=== PATIENT | female | born 1985 | race Caucasian/White ===

== ENCOUNTER 2019-12-24 12:29 | Day surgery (SDC) | payer OTHER ==
[2019-12-21 12:10] VITALS: BMI 25.1
[2019-12-24 13:25] VITALS: TEMP 98
[2019-12-24 13:55] VITALS: BP 108/71; PULSE 60
--- NOTE | 2019-12-27 17:24 | PATH ---
Surgical Pathology Report Patient Name: JOHAN FRANK [facility]. Rec. #: [id number] /Age/Gender: 1985 (Age: 34) / F Account: [id number] Location: [facility] Taken: 12/24/2019 Received: 12/24/2019 Reported: 12/27/2019 Physicians: Kleber Tee M.D. Specimen(s) Received A: DUODENUM B: STOMACH C: DISTAL ESOPHAGUS Clinical History Epigastric pain Postoperative diagnosis: Abdominal pain, dyspepsia Final Diagnosis A. DUODENUM, BIOPSY: DUODENAL MUCOSA WITHOUT SIGNIFICANT PATHOLOGIC FINDINGS. B. STOMACH, BIOPSY: GASTRIC OXYNTIC MUCOSA WITH MILD CHRONIC GASTRITIS. IMMUNOHISTOCHEMICAL STAIN FOR H. PYLORI IS NEGATIVE. C. DISTAL ESOPHAGUS, BIOPSY: SQUAMOCOLUMNAR MUCOSA WITH MILD CHRONIC INFLAMMATION AND CHANGES OF MODERATE REFLUX ESOPHAGITIS. NO INTESTINAL METAPLASIA OR DYSPLASIA IDENTIFIED. Positive and negative controls (internal if applicable) show appropriate results. Electronically Signed Oxana Brand M.D. Gross Description A. Received in formalin, labeled "biopsy duodenum" are 3 trevino, irregular portions of soft tissue ranging from 0.1-0.6 cm. in greatest dimension. The specimens are submitted in toto in one cassette. B. Received in formalin, labeled "biopsy stomach" are 2 trevino, irregular portions of soft tissue averaging 0.3 cm. in greatest dimension. The specimens are submitted in toto in one cassette. C. Received in formalin, labeled "biopsy distal esophagus" is a trevino, irregular portion of soft tissue measuring 0.3 cm. in greatest dimension. The specimen is submitted in toto in one cassette. /12/24/2019 [facility]/12/24/2019
== END 2019-12-24 14:07 | disposition home or self-care (01) ==
LOC: JASU-SURG 12:29
PROVIDERS: ATTEND Internal Medicine Gastroenterology
PROC: 0DB68ZX Excision of Stomach, Via Natural or Artificial Opening Endoscopic, Diagnostic (ICD-10-PCS; 2019-12-24)
PROC: 0DB38ZX Excision of Lower Esophagus, Via Natural or Artificial Opening Endoscopic, Diagnostic (ICD-10-PCS; 2019-12-24)
PROC: 0DB98ZX Excision of Duodenum, Via Natural or Artificial Opening Endoscopic, Diagnostic (ICD-10-PCS; principal; 2019-12-24 12:30)
DX: K29.50 Unspecified chronic gastritis without bleeding (principal); K21.0 Gastro-esophageal reflux disease with esophagitis; R10.13 Epigastric pain
CPT/HCPCS: 81025; 88305-TC; 88342-TC